=== PATIENT | female | born 1950 | race Caucasian/White ===

== ENCOUNTER → 2017-02-23 | Outpatient (CLI) | payer OTHER | LOC: BRMIMAGING 16:38 | PROVIDERS: ATTEND Family Medicine | DX: S82.51XA Displaced fracture of medial malleolus of right tibia, initial encounter for closed fracture (principal) | CPT/HCPCS: 73610-PO ==

== ENCOUNTER → 2017-03-08 | Outpatient (CLI) | payer OTHER | LOC: BRMIMAGING 11:15 | PROVIDERS: ATTEND Family Medicine | DX: S82.51XD Displaced fracture of medial malleolus of right tibia, subsequent encounter for closed fracture with routine healing (principal) | CPT/HCPCS: 73610-PO ==

== ENCOUNTER → 2017-07-18 | Outpatient (CLI) | payer BC, OTHER | LOC: BRMIMAGING 14:42 | PROVIDERS: ATTEND Family Medicine | DX: Z12.31 Encounter for screening mammogram for malignant neoplasm of breast (principal) | CPT/HCPCS: G0202 ==

== ENCOUNTER → 2018-07-27 | Outpatient (CLI) | payer BC | LOC: BRMIMAGING 10:52 | PROVIDERS: ATTEND Family Medicine | DX: Z12.31 Encounter for screening mammogram for malignant neoplasm of breast (principal) ==